=== PATIENT | female | born 1995 | race Caucasian/White ===

== ENCOUNTER 2019-03-09 16:51 | Observation (INO) | payer OTHER ==
[2019-03-09 18:24] LABS: Amphetamine,Urine NEGATIVE (NEGATIVE); Barbiturate,Urine NEGATIVE (NEGATIVE); Benzodiazepine,Urine NEGATIVE (NEGATIVE); Cocaine,Urine NEGATIVE (NEGATIVE); Methadone,Urine NEGATIVE (NEGATIVE); Opiate,Urine NEGATIVE (NEGATIVE); PCP,Urine NEGATIVE (NEGATIVE); THC,Urine NEGATIVE (NEGATIVE)
[2019-03-09 21:35] VITALS: BP 123/56; PULSE 83
--- NOTE | 2019-03-10 08:36 | XRAY ---
Indication: Status post fall. Two-dimensional OB ultrasound performed. Comparison: December 07, 2018. Again there is a single viable intrauterine now in cephalic presentation. heart rate 140 BPM. anatomy previously documented. Visualized stomach and bladder are unremarkable. Again anterior placenta without abruption/previa. BPD measures 8.03 cm corresponding to 32 weeks 2 days. HC measures 30.46 cm corresponding to 33 weeks 6 days. AC measures 28.71 cm corresponding to 32 weeks 5 days. FL measures 6.28 cm corresponding to 32 weeks 4 days. PINO is 11.5 cm. Impression: Again single viable intrauterine with mean gestational age 32 weeks 6 days. Normal progression of . No acute findings. Comment: Preliminary report was given.
== END 2019-03-09 21:15 | disposition home or self-care (01) ==
LOC: OB 16:51
PROVIDERS: ADMIT Family Medicine; ATTEND Family Medicine
DX: Z34.03 Encounter for supervision of normal first pregnancy, third trimester (principal)
CPT/HCPCS: 76805; 80307; G0378

== ENCOUNTER 2019-03-27 12:25 | Observation (INO) | payer OTHER ==
[2019-03-27 13:10] VITALS: BP 123/65; PULSE 86
== END 2019-03-27 14:15 | disposition home or self-care (01) ==
LOC: OB 12:25
PROVIDERS: ADMIT Family Medicine; ATTEND Family Medicine
DX: Z34.03 Encounter for supervision of normal first pregnancy, third trimester (principal)
CPT/HCPCS: 59025; G0378

== ENCOUNTER 2019-04-03 12:41 | Observation (INO) | payer OTHER ==
[2019-04-03 13:07] LABS: BASOPHIL % 0.2 % (0.0-0.4); Basophil (Absolute #) 0.02 (0-0.4); Eosinophil % 0.7 % (0.00-5.0); Eosinophil (Absolute #) 0.09 (0-0.5); Granulocyte Absolute (ANC) 10.46 (1.4-6.9); Granulocytes % 78.7 % (36.0-66.0); Hematocrit 29.7 % (35-47); Hemoglobin 9.3 gm/dl (12.0-16.0); Lymphocyte (Absolute #) 1.88 (1.0-4.6); Lymphocytes % 14.2 % (24.0-44.0); Mean Cell Volume 83.2 fl (78-100); Mean Corpuscular Hgb Concent. 31.3 g/dl (32-36); Monocyte (Absolute #) 0.82 (0.0-1.3); Monocytes % 6.2 % (0.0-12.0); Platelet Count 224 K/mm3 (150-450); Red Blood Count 3.57 M/mm3 (4.1-5.4); Red Cell Distribution Width 13.7 % (11.5-14.0); White Blood Count 13.3 K/mm3 (4.0-10.5)
[2019-04-03 13:16] LABS: ALBUMIN 3.5 g/dL (3.5-5.0); ALKALINE PHOSPHATASE 106 U/L (38-126); ANION GAP 11.9 MEQ/L (5-15); BLOOD UREA NITROGEN 6 mg/dL (7-17); CHLORIDE 106 mmol/L (98-107); Calcium 9.8 mg/dL (8.4-10.2); Carbon Dioxide 23 mmol/L (22-30); Creatinine 1 0.48 mg/dL (0.52-1.04); Glucose 72 mg/dL (74-106); SGOT/AST 18 U/L (14-36); SGPT/ALT 13 U/L (0-35); SODIUM 136 mmol/L (137-145); Total Protein 6.8 g/dL (6.3-8.2)
[2019-04-03 13:19] VITALS: BP 110/63; PULSE 82
== END 2019-04-03 15:25 | disposition home or self-care (01) ==
LOC: OB 12:41
PROVIDERS: ADMIT Family Medicine; ATTEND Family Medicine
DX: Z34.03 Encounter for supervision of normal first pregnancy, third trimester (principal)
CPT/HCPCS: 36415; 59025; 80053; 84550; 85025; G0378

== ENCOUNTER 2019-04-27 12:54 | Inpatient (IN) | payer OTHER ==
[2019-04-27] MEDS ORDERED: Cervidil 10 MG VAG SCH (20:00)
[2019-04-27] MEDS ORDERED: BRETHINE 1 MG/ML SQ PRN (20:00)
[2019-04-27] MEDS ORDERED: XYLOCAINE 1% HCL 20 ML MDV IJ PRN (20:00)
[2019-04-27] MEDS ORDERED: Zofran 4 MG/2 ML VIAL IV PRN (20:47)
[2019-04-27] MEDS ORDERED: PITOCIN 30 UNITS/ LR 500 ML 500 ML IV SCH (21:00)
[2019-04-27 21:16] LABS: BASOPHIL % 0.2 % (0.0-0.4); Basophil (Absolute #) 0.02 (0-0.4); Eosinophil % 0.6 % (0.00-5.0); Eosinophil (Absolute #) 0.08 (0-0.5); Granulocyte Absolute (ANC) 9.67 (1.4-6.9); Granulocytes % 76.7 % (36.0-66.0); Hematocrit 32.4 % (35-47); Hemoglobin 10.2 gm/dl (12.0-16.0); Lymphocyte (Absolute #) 2.01 (1.0-4.6); Lymphocytes % 15.9 % (24.0-44.0); Mean Cell Volume 81.6 fl (78-100); Mean Corpuscular Hgb Concent. 31.5 g/dl (32-36); Mean Platelet Volume 10.7 fl (6-9.5); Monocyte (Absolute #) 0.83 (0.0-1.3); Monocytes % 6.6 % (0.0-12.0); Platelet Count 184 K/mm3 (150-450); Red Blood Count 3.97 M/mm3 (4.1-5.4); Red Cell Distribution Width 15.9 % (11.5-14.0); White Blood Count 12.6 K/mm3 (4.0-10.5)
[2019-04-27 21:19] LABS: Mean Corpuscular Hemoglobin 25.6 pg (26-32)
[2019-04-27] MEDS ORDERED: Lactated Ringers 1,000 ML IV ONE (21:26)
[2019-04-27] MEDS: Lactated Ringers 1,000 ML IV SCH (21:27)
[2019-04-27 21:28] LABS: Appearance SLIGHTLY CLOUDY (CLEAR); Bacteria FEW /HPF (NEGATIVE); Bilirubin NEGATIVE (NEGATIVE); Blood NEGATIVE Ery/ul (0-5); Epithelial Cells RARE /HPF (FEW); Glucose NEGATIVE (NEGATIVE); Ketones TRACE (NEGATIVE); Leukocyte Esterase TRACE (NEGATIVE); Mucus SLIGHT /HPF (NEGATIVE); Nitrite NEGATIVE (NEGATIVE); Protein,Urine Dip NEGATIVE (Negative); RBC 0-2 /HPF (0-2); Specific Gravity 1.013 (1.005-1.025); Urobilinogen NEGATIVE mg/dL (0-1)
[2019-04-27 21:40] LABS: Amphetamine,Urine NEGATIVE (NEGATIVE); Barbiturate,Urine NEGATIVE (NEGATIVE); Benzodiazepine,Urine NEGATIVE (NEGATIVE); Cocaine,Urine NEGATIVE (NEGATIVE); Methadone,Urine NEGATIVE (NEGATIVE); Opiate,Urine NEGATIVE (NEGATIVE); PCP,Urine NEGATIVE (NEGATIVE); THC,Urine NEGATIVE (NEGATIVE)
[2019-04-27 22:37] LABS: ABO TYPING O; Antibody Screen NEGATIVE (NEGATIVE); RH TYPING POSITIVE
[2019-04-28] MEDS ORDERED: OMNIPEN 1GM / NaCl 100ML 100 ML IV SCH ×2 (00:48→11:00)
[2019-04-28] MEDS ORDERED: PITOCIN 30 UNITS/ LR 500 ML 500 ML IV SCH (07:00)
[2019-04-28] MEDS ORDERED: OMNIPEN 2 GM / NACL 100ML 100 ML IV ONE (07:00)
[2019-04-28] MEDS: TYLENOL EXTRA STRENGTH 500 MG PO PRN (12:36)
[2019-04-28] MEDS: PITOCIN 30 UNITS/ LR 500 ML 500 ML IV SCH (12:50)
[2019-04-28] MEDS ORDERED: OMNIPEN 2 GM / NACL 100ML 100 ML IV SCH (13:00)
[2019-04-28] MEDS: OMNIPEN 1GM / NaCl 100ML 100 ML IV SCH ×2 (18:35→23:02)
[2019-04-28] MEDS: Lactated Ringers 1,000 ML IV SCH (19:28)
[2019-04-29] MEDS ORDERED: Cervidil 10 MG VAG SCH (01:30)
[2019-04-29] MEDS: OMNIPEN 1GM / NaCl 100ML 100 ML IV SCH ×4 (05:37→17:35)
[2019-04-29] MEDS: Lactated Ringers 1,000 ML IV SCH ×3 (05:38→17:42)
[2019-04-29] MEDS ORDERED: Lactated Ringers 1,000 ML IV ONE (13:02)
[2019-04-29] MEDS ORDERED: OB EPIDURAL NAROPIN/SUFENTANIL IN NACL EPIDURAL PRN (13:02)
[2019-04-29] MEDS ORDERED: Ephedrine Sulfate 50 MG/ML IV PRN (13:02)
[2019-04-29 13:22] LABS: Hematocrit 33.6 % (35-47); Hemoglobin 10.5 gm/dl (12.0-16.0); Mean Cell Volume 82.6 fl (78-100); Mean Corpuscular Hgb Concent. 31.3 g/dl (32-36); Mean Platelet Volume 10.3 fl (6-9.5); Platelet Count 186 K/mm3 (150-450); Red Blood Count 4.07 M/mm3 (4.1-5.4); Red Cell Distribution Width 16.4 % (11.5-14.0)
[2019-04-29 13:23] LABS: Mean Corpuscular Hemoglobin 25.7 pg (26-32)
[2019-04-29] MEDS ORDERED: MOTRIN 400 MG PO PRN (16:30)
[2019-04-29] MEDS ORDERED: Rhogam Plus 300 MCG IM ONE (16:30)
[2019-04-29] MEDS ORDERED: Anucort-HC SUPPOSITORY PR PRN (16:30)
[2019-04-29] MEDS ORDERED: TYLENOL EXTRA STRENGTH 500 MG PO PRN (16:30)
[2019-04-29] MEDS ORDERED: LANSINOH 40 GM TOP PRN (16:30)
[2019-04-29] MEDS ORDERED: Dermoplast Spray TP PRN (16:30)
[2019-04-29] MEDS ORDERED: NORCO 5/325 MG PO PRN (16:30)
[2019-04-29] MEDS ORDERED: TUCKS TP PRN (16:30)
[2019-04-29] MEDS ORDERED: Restoril 15 MG PO PRN (16:30)
[2019-04-29] MEDS ORDERED: Dulcolax 10 MG SUPP PR PRN (16:30)
[2019-04-29] MEDS ORDERED: CORTISONE 1% CREAM TP PRN (16:30)
[2019-04-29] MEDS ORDERED: Mylicon 80MG PO PRN (16:30)
[2019-04-29] MEDS ORDERED: Ambien 10 MG PO PRN (16:30)
[2019-04-29] MEDS: PITOCIN 30 UNITS/ LR 500 ML 500 ML IV SCH (17:48)
[2019-04-30] MEDS: Colace 100 MG PO SCH ×3 (04:02→20:22)
[2019-04-30 06:25] LABS: BASOPHIL % 0.2 % (0.0-0.4); Basophil (Absolute #) 0.03 (0-0.4); Eosinophil % 0.7 % (0.00-5.0); Eosinophil (Absolute #) 0.11 (0-0.5); Granulocyte Absolute (ANC) 10.61 (1.4-6.9); Granulocytes % 71.9 % (36.0-66.0); Hematocrit 29.4 % (35-47); Hemoglobin 9.2 gm/dl (12.0-16.0); Lymphocytes % 19.6 % (24.0-44.0); Mean Cell Volume 83.1 fl (78-100); Mean Corpuscular Hgb Concent. 31.3 g/dl (32-36); Mean Platelet Volume 10.9 fl (6-9.5); Monocyte (Absolute #) 1.12 (0.0-1.3); Monocytes % 7.6 % (0.0-12.0); Platelet Count 163 K/mm3 (150-450); Red Blood Count 3.54 M/mm3 (4.1-5.4); Red Cell Distribution Width 16.3 % (11.5-14.0); White Blood Count 14.8 K/mm3 (4.0-10.5)
[2019-04-30 06:27] VITALS: O2SAT 98
[2019-04-30 06:27] LABS: Mean Corpuscular Hemoglobin 25.9 pg (26-32)
--- NOTE | 2019-04-30 09:28 | PCM.NOTE ---
Date and Time: 04/30/19924 Subjective Assessment: mild lochia, pain well controlled. no problems or concerns, and well bonded with infant Objective Exam General Appearance: no apparent distress, alert Neck Exam: normal inspection, non-tender, supple, full range of motion Respiratory Exam: normal breath sounds, lungs clear, No respiratory distress Cardiovascular Exam: regular rate/rhythm, normal heart sounds Gastrointestinal/Abdomen Exam: soft, No tenderness, No mass OBJECTIVE DATA Vital Signs: Vital Signs - 24 hr Temp Pulse Resp BP BP Pulse Ox 04/30/19 05:00 98.5 F 88 16 125/67 98 04/30/19 04:08 91 H 16 126/72 100 04/30/19 01:00 91 H 16 126/72 100 04/29/19 21:00 99.2 F 96 H 16 126/66 98 04/29/19 20:08 99.2 F 96 H 16 126/66 98 04/29/19 19:30 98.6 F 98 H 20 130/73 04/29/19 18:30 109 H 20 129/77 04/29/19 18:00 88 20 111/65 04/29/19 17:30 92 H 20 115/82 04/29/19 17:10 90 20 107/51 04/29/19 17:00 90 22 113/62 04/29/19 16:55 81 22 113/62 04/29/19 15:45 85 22 133/81 04/29/19 15:30 80 22 137/63 04/29/19 15:15 80 22 126/58 04/29/19 15:00 83 22 130/68 04/29/19 14:45 98 H 22 137/68 04/29/19 14:30 80 22 137/68 04/29/19 14:15 80 22 137/68 04/29/19 14:00 80 22 102/53 04/29/19 13:45 75 22 102/53 04/29/19 13:30 75 22 130/76 04/29/19 13:15 84 22 120/76 04/29/19 13:00 84 22 120/76 120/76 04/29/19 12:45 80 20 110/55 04/29/19 12:30 80 20 110/55 04/29/19 12:15 80 18 115/57 04/29/19 12:00 78 18 110/63 04/29/19 11:45 81 16 116/57 04/29/19 11:30 87 16 116/61 04/29/19 11:15 86 16 125/67 04/29/19 11:00 89 16 111/60 04/29/19 10:30 82 16 04/29/19 10:15 85 16 Pain Assessment - Last Documented Pain Intensity [Lower Anterior 0 /Posterior] Pain Intensity 0 Pain Scale Used 0-10 Pain Scale Intake and Output: Intake & Output 04/27/19 04/28/19 04/29/19 04/30/19 11:59 11:59 11:59 11:59 Intake Total 450 6524 8807 Balance 450 6554 8807 Weight 108.862 kg Lab Results: Lab Results-Last 24 Hours 04/27/19 04/29/19 04/30/19 Range/Units 20:30 13:11 06:06 WBC 14.0 H 14.8 H (4.0-10.5) K/mm3 RBC 4.07 L 3.54 L (4.1-5.4) M/mm3 Hgb 10.5 L 9.2 L (12.0-16.0) gm/dl Hct 33.6 L 29.4 L (35-47) % MCV 82.6 83.1 (78-100) fl MCH 25.7 L 25.9 L (26-32) pg MCHC 31.3 L 31.3 L (32-36) g/dl RDW 16.4 H 16.3 H (11.5-14.0) % Plt Count 186 163 (150-450) K/mm3 MPV 10.3 H 10.9 H (6-9.5) fl Gran % 71.9 H (36.0-66.0) % Eos # (Auto) 0.11 (0-0.5) Absolute Lymphs (auto) 2.90 (1.0-4.6) Absolute Monos (auto) 1.12 (0.0-1.3) Lymphocytes % 19.6 L (24.0-44.0) % Monocytes % 7.6 (0.0-12.0) % Eosinophils % 0.7 (0.00-5.0) % Basophils % 0.2 (0.0-0.4) % Absolute Granulocytes 10.61 H (1.4-6.9) Basophils # 0.03 (0-0.4) Hep Bs Antigen Non Reactive (Non Reactive) Multi-Disciplinary Progress Notes: Multi-Disciplinary Progress Notes 04/29/19 17:41 Respiratory Note by Angela Moreno FOR DELIVERY PER DR LEMA REQUEST. NO COMPLICATIONS. [id number] Initialized on 04/29/19 17:41 - END OF NOTE Assessment/Plan (1) Vaginal delivery Current Visit: Yes Status: Acute Assessment & Plan: doing well, routine care Code(s): O80 - ENCOUNTER FOR FULL-TERM UNCOMPLICATED DELIVERY (2) () Current Visit: Yes Status: Acute Code(s): Z78.9 - OTHER SPECIFIED HEALTH STATUS
[2019-04-30] MEDS: FERREX 150 PO SCH (09:54)
[2019-05-01] MEDS: TYLENOL EXTRA STRENGTH 500 MG PO PRN (00:31)
--- NOTE | 2019-05-01 08:45 | PCM.DS ---
Discharge Summary Date of Admission: 04/29/19 12:54 Admitting Physician: JESUS LEMA Primary Care Provider: JESUS LEMA Allergies Allergies No Known Drug Allergies Allergy (Verified 04/27/19 22:11) Hospital Summary - Hospital Course Hospital Course: Pt came in as 23 yo post dates for induction of labor - had cervadil then pitocin with no change. the next night had cervadil again, then started pitocin. [facility] was 3 cm dilated. After AROM, she went from 3cm to 10cm dilated in 1.5 hours. Delivered viable female without complication (for full details, see delivery note). She is but with some difficulty. Baby was goldy positive. Baby having some jitteriness. Mom to be discharged but baby is being kept another day. - Vitals & Intake/Output Vital Signs: Vital Signs Temperature 97.8 F 05/01/19 05:00 Pulse Rate 74 05/01/19 05:00 Respiratory Rate 16 05/01/19 05:00 Blood Pressure 123/71 05/01/19 05:00 O2 Sat by Pulse Oximetry 98 04/30/19 05:00 Intake & Output: Intake & Output 04/28/19 04/29/19 04/30/19 05/01/19 11:59 11:59 11:59 11:59 Intake Total 450 6554 8807 980 Balance 450 6554 8807 980 Weight 108.862 kg - Lab Result Diagrams: 04/30/19 06:06 - Procedures and Test Procedures and Tests throughout Hospitalization: Therapy Orders & Screens 04/29/19 17:40 Standby STAT Comment: Diagnosis: induction of labor Discharge Exam General Appearance: no apparent distress, alert Neurologic Exam: oriented x 3, cooperative Eye Exam: eyes nml inspection Ears, Nose, Throat Exam: moist mucous membranes Respiratory Exam: normal breath sounds, lungs clear, No crackles/rales, No rhonchi, No wheezing Cardiovascular Exam: regular rate/rhythm, normal heart sounds, No murmur Gastrointestinal/Abdomen Exam: soft, normal bowel sounds, other (fundus firm under umbilicus), No tenderness Extremity Exam: normal inspection, pedal edema (2+ pedal and pretibial edema bilat) Skin Exam: normal color, warm, dry, No rash Final Diagnosis/Problem List - Final Discharge Diagnosis/Problem (1) Vaginal delivery Current Visit: Yes Status: Acute Assessment & Plan: doing great. PPD #2, will stay here with her baby however. Code(s): O80 - ENCOUNTER FOR FULL-TERM UNCOMPLICATED DELIVERY (2) Leg edema Current Visit: Yes Status: Acute Code(s): R60.0 - LOCALIZED EDEMA (3) (infant) Current Visit: Yes Status: Acute Code(s): Z78.9 - OTHER SPECIFIED HEALTH STATUS (4) Anemia Current Visit: Yes Status: Acute Assessment & Plan: PP Hgb 9.2. Code(s): D64.9 - ANEMIA, UNSPECIFIED - Discharge Disposition: Home, Self-Care Condition: Good Prescriptions: New Ibuprofen 600 mg PO TID PRN #30 tablet PRN Reason: Pain Ferrous Sulfate 325 mg [Feosol 325 mg] 325 mg PO DAILY #30 tablet Continue Verapamil HCl 120 mg PO DAILY PRN PRN PRN Reason: Headache Vits W-Ca,Fe,FA(<1Mg) [] 1 each PO HS Ferrous Gluconate 324 mg PO DAILY Changed raNITIdine HCl [Ranitidine HCl] 150 mg PO BID PRN PRN #0 PRN Reason: acid reflux Additional Instructions: Return to OB on Wednesday for a mother/baby follow-up (unless advised differently when baby is discharged) Follow up with: JESUS LEMA [Primary Care Provider] - 1 Week (4-6 weeks) Forms: OB Discharge Instructions
[2019-05-01] MEDS: FERREX 150 PO SCH (10:56)
[2019-05-01] MEDS: Colace 100 MG PO SCH ×2 (10:56→22:45)
[2019-05-01 14:28] LABS: Immune Status: Equivocal
[2019-05-01 16:06] LABS: RPR Screen Non Reactive (Non Reactive)
[2019-05-01] MEDS ORDERED: M-M-R II Vaccine With Diluent SQ ONE (18:12)
[2019-05-01 21:17] VITALS: BP 114/61; PULSE 77
== END 2019-05-01 23:30 | disposition home or self-care (01) | DRG 807 ==
LOC: OB 12:54 → OBSVTOIN 04-29 12:54
PROVIDERS: ADMIT Family Medicine; ATTEND Family Medicine
PROC: 10E0XZZ Delivery of Products of Conception, External Approach (ICD-10-PCS; principal; 2019-04-29)
DX: O71.4 Obstetric high vaginal laceration alone (principal); Z37.0 Single live birth; Z3A.40 40 weeks gestation of pregnancy; D64.9 Anemia, unspecified; R60.0 Localized edema
CPT/HCPCS: 36415; 80307; 81001; 82962; 85025; 85027; 86592; 86593; 86701; 86702; 86762; 86850; 86900; 86901; 87340; 87389; 90707; 94799; G0378; J0290; J2590; J2795; 0064U; 0065U; A9270-GY

== ENCOUNTER 2025-10-26 17:29 | Observation (INO) | payer BC ==
[2025-10-26 18:11] VITALS: RESP 20
[2025-10-26 18:26] LABS: Amphetamine,Urine NEGATIVE (NEGATIVE); Barbiturate,Urine NEGATIVE (NEGATIVE); Benzodiazepine,Urine NEGATIVE (NEGATIVE); Cocaine,Urine NEGATIVE (NEGATIVE); Methadone,Urine NEGATIVE (NEGATIVE); Opiate,Urine NEGATIVE (NEGATIVE); PCP,Urine NEGATIVE (NEGATIVE); THC,Urine NEGATIVE (NEGATIVE)
[2025-10-26 19:53] VITALS: TEMP 98
[2025-10-26 21:27] VITALS: BP 130/69; PULSE 75; O2SAT 100
== END 2025-10-26 21:32 | disposition home or self-care (01) ==
LOC: OB 17:29
PROVIDERS: ADMIT Family Medicine; ATTEND Family Medicine
DX: Z34.83 Encounter for supervision of other normal pregnancy, third trimester (principal); Z3A.28 28 weeks gestation of pregnancy